=== PATIENT | male | born 2000 | race Caucasian/White ===

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

== ENCOUNTER 2022-02-19 02:46 | Emergency (ER) | payer OTHER, SELFPAY ==
[2022-02-19 02:48] VITALS: BP 133/102; PULSE 104; RESP 18; TEMP 36.8; O2SAT 98; BMI 22.4
[2022-02-19] MEDS: Ondansetron ODT 4 MG Tablet PO (03:06)
--- NOTE | 2022-02-19 03:20 | EX.ED.DYSGE1 ---
HPI History of Present Illness Chief Complaint: Fever Informant: patient Narrative Narrative: Patient started feeling ill about 1 week ago. He initially had sore throat nasal congestion. He had about 3 to 4 days of constipation. He then changed to having diarrhea. He stated he had diarrhea about every 20 minutes yesterday. But today has only had 2 episodes. He is not having abdominal pain. He has no change in urination or output. He is eating and drinking now but he states he is not eating and drinking as much as he would like because he has continued nausea. He has myalgias. No notable headache. No chest pain. He is not and has not had any coughing or trouble breathing. No known exposure to illnesses. No one else he knows of is sick. No specific medications foods or causes that he can think of. Overall his symptoms are improving and most symptoms are gone but he still has some nausea and some mildly soft stool. Myalgias are better but still present. He has had some intermittent fevers but that has gotten better today also. Nothing specifically has made his symptoms worse. Time is gotten better. PFSH PFSH Medical History no medical history Home Medications ondansetron 4 mg PO Q8H PRN #10 tab 02/19/22 [Rx Last Taken Unknown] Allergy/AdvReac Type Severity Reaction Status Date / Time No Known Allergies Allergy Verified 02/19/22 02:54 Surgical History History of tonsillectomy and adenoidectomy Social History Smoking Status: Current every day smoker tobacco type: cigarettes ROS ROS ED ROS Narrative Review of systems is inclusive for the past week. Many of the symptoms are now gone or better. Constitutional Constitutional ED: Reports chills and fever(s) Eyes Eyes: Denies blurry vision ENT ENT ED: Reports ear pain, rhinorrhea and sore throat Cardiovascular Cardiovascular: Denies chest pain, palpitations or racing heartbeat Respiratory/Chest Respiratory/Chest: Denies cough, dyspnea or sputum Gastrointestinal Gastrointestinal: Reports constipation, diarrhea, nausea and vomiting; Denies abdominal pain or melena Genitourinary Genitourinary ED: Denies dysuria, hematuria or urinary frequency Musculoskeletal Musculoskeletal: Reports myalgias Integumentary Denies rash Neurologic Neurologic: Denies headache(s), paresthesias or weakness Psychiatric Psychiatric: Denies anxiety or depression Endocrine Endocrinology: Denies polydipsia or polyuria Allergic/Immunologic Allergic/Immunologic ED: Denies urticaria EXAM Physical Exam Const Vital Signs: 02/19/22 02:48 02/19/22 02:52 Temperature 98.2 F Temperature Source Oral Pulse Rate 104 H Respiratory Rate 18 Respiratory Effort Normal Non-Labored Respiratory Pattern Normal Blood Pressure 133/102 H Blood Pressure Mean 112 Pulse Ox 98 Oxygen Delivery Method Room Air Positive well nourished and well developed General Appearance ED: well developed and NAD; Negative for cyanotic or diaphoretic HEENT Reports TM's clear and moist mucous membranes; Denies dry mucous membranes HEENT Narrative: No sinus tenderness. Tympanic membranes are both clear. He had had an earache but that is better. Throat is still moist. No exudate. Negative for trauma or tenderness Tympanic Membrane ED: Yes TM's clear Mouth ED: No dry mucous membranes Mouth: No dry mucous membranes Eyes General Eye ED: Negative for pale conjunctiva or scleral icterus Neck supple and no JVD Neck Narrative: No lymphadenopathy or meningismus Resp normal respiratory effort and clear to auscultation bilaterally Effort and Inspection: Negative for pain with movement Auscultation: Negative for rales, rhonchi or wheezes Cardio regular rate and regular rhythm GI normal to inspection, nondistended, normoactive bowel sounds, non-tender and non-distended Auscultation: normoactive bowel sounds Palpation: soft Back/Spine no CVA tenderness Extremity normal to inspection General Extremety ED: Negative for edema General Extremity: Negative for edema Neuro Sensorium / Orientation: alert; Negative for lethargic or stuporous Psych mental status grossly normal Skin no rashes or lesions noted MDM MDM MDM Narrative Medical decision making narrative: Patient feels better with the Zofran. He has significantly less nausea. He is able to eat and drink. Covid screening is negative. Patient has not had any travel or antibiotic use. No immunosuppression. This is most likely viral illness. He has had myalgias sore throat congestion earache and then diarrhea. Diarrhea is improving. He is only a couple episodes in the last 24 hours. I think we can treat this expectantly with symptomatic control of nausea. Discharge Plan Triage Chief Complaint: Fever ED Provider: Cecilio Ball Dx/Rx/DC Orders Clinical Impression: Diarrhea, Nausea alone Instructions: Nausea Vomit Control Prescriptions: New ondansetron 4 mg tablet,disintegrating 4 mg PO Q8H PRN (Reason: nausea and vomiting) Qty: 10 RF: 0 Primary Care Provider: Care Physician,No Primary Referrals: Soni Danielson DO [STAFF PHYSICIAN] - 3-5 Days if not improving Care Physician,No Primary [Primary Care Provider] - Disposition Disposition: Home, Self Care
[2022-02-19 04:04] VITALS: BP 131/96; PULSE 79; RESP 18; TEMP 35.5
== END 2022-02-19 04:05 | disposition home or self-care (01) ==
PROVIDERS: Emergency Provider Emergency Medicine; Visit Provider Emergency Medicine
DX: R19.7 Diarrhea, unspecified (principal); M79.10 Myalgia, unspecified site; R50.9 Fever, unspecified; R11.0 Nausea; F17.210 Nicotine dependence, cigarettes, uncomplicated
CPT/HCPCS: 87811; 99283